=== PATIENT | female | born 1960 | race Caucasian/White ===

== ENCOUNTER 2018-09-20 14:00 | Emergency (ER) | payer OTHER ==
[2018-09-20 14:23] VITALS: BP 116/68
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
[2018-09-20] MEDS ORDERED: MORPHINE IV ONE (16:18)
[2018-09-20] MEDS ORDERED: ZOFRAN IV ONE (16:18)
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
== END 2018-09-20 18:06 | disposition home or self-care (01) ==
LOC: ED 14:00
DX: S42.301A Unspecified fracture of shaft of humerus, right arm, initial encounter for closed fracture (principal); Z79.899 Other long term (current) drug therapy; V89.2XXA Person injured in unspecified motor-vehicle accident, traffic, initial encounter; Y93.89 Activity, other specified; Y92.488 Other paved roadways as the place of occurrence of the external cause; Y99.8 Other external cause status
CPT/HCPCS: 29105; 71046; 72040; 73060; 96374; 96375; 99284; J2270; J2405